=== PATIENT | male | born 1990 | race Two or more races ===

== ENCOUNTER 2021-09-28 20:43 | Emergency (ER) | payer MEDICAID, OTHER ==
[~2021-09-28] VITALS: Ht 182.9 cm; Wt 77.1 kg
[2021-09-28 20:52] VITALS: BP 122/83
== END 2021-09-28 21:10 ==
LOC: ER 20:43
DX: F10.920 Alcohol use, unspecified with intoxication, uncomplicated (principal); Y90.9 Presence of alcohol in blood, level not specified; V43.52XA Car driver injured in collision with other type car in traffic accident, initial encounter; Y93.89 Activity, other specified; Y92.410 Unspecified street and highway as the place of occurrence of the external cause; Y99.8 Other external cause status